=== PATIENT | female | born 1985 | race Caucasian/White ===

== ENCOUNTER → 2017-11-17 09:32 | Outpatient (CLI) | payer OTHER, MEDICAID, SELFPAY ==
--- NOTE | 2017-11-17 | DI.RAD.S_ITS ---
PROCEDURE: XR CHEST 2V INDICATIONS: COUGH TECHNIQUE: 2 views of the chest were acquired. COMPARISON: [facility], CHEST 2 VIEW, 03/25/2017, 10:55. [facility], CHEST 2 VIEW, 11/08/2016, 7:26. [facility], CHEST 2 VIEW, 10/26/2016, 19:00. FINDINGS: Surgical changes and devices: None. Lungs and pleura: No pleural effusions or pneumothorax. Lungs are clear. Mediastinum: Mediastinal contours are normal. Heart size is normal. Bones and chest wall: No suspicious bony abnormalities. Soft tissues appear unremarkable. IMPRESSION: Normal for age, source of current symptoms is not seen. No pneumonia found. Dictated by: Vidal Mcmanus M.D. on 11/17/2017 at 10:44 Approved by: Vidal Mcmanus M.D. on 11/17/2017 at 10:44
== END ==
PROVIDERS: PCP Family Medicine; Visit Provider Family Medicine
DX: R05 Cough (principal)
CPT/HCPCS: 71046

== ENCOUNTER 2017-12-12 00:35 | Emergency (ER) | payer OTHER, MEDICAID, SELFPAY ==
[2017-12-12 00:41] VITALS: BP 114/73; PULSE 85; RESP 18; TEMP 36.6; O2SAT 100; BMI 21.4
--- NOTE | 2017-12-12 01:55 | ED_ITS ---
HPI - Ear Problem General Chief complaint: Ear Stated complaint: right side ear pain Time Seen by Provider: 12/12/17 01:31 Source: patient Mode of arrival: ambulatory Limitations: no limitations History of Present Illness HPI Narrative: the patient developed right ear pain earlier this evening. She has recently returned home on a flight, she developed congestion and cough after returning. She denies fever or chills. She has no facial pain. She has no drainage from the right ear. She had a history of chronic ear problems as a child, not as an adult. She is not a nonsmoker. She denies having issues with allergies or asthma. She has not been swimming recently. Related Data Home Medications Medication Instructions Recorded Confirmed multivitamin [Multiple Vitamins] 1 tab PO QDAY #0 10/26/16 cyclobenzaprine 10 mg PO Q8H PRN 09/23/17 promethazine-codeine 5 ml PO Q4H PRN 09/23/17 Previous Rx's Medication Instructions Recorded hydrocodone-acetaminophen 1 - 2 tab PO Q4HP PRN #30 tab 08/09/17 Allergies Allergy/AdvReac Type Severity Reaction Status Date / Time Penicillins Allergy Intermediate RASH Verified 12/12/17 00:45 Review of Systems Constitutional Denies chills, Denies fever(s), Denies lethargy and Denies weakness Eyes Denies eye discharge and Denies irritation ENT Ears, Nose, Mouth, and Throat: Denies change in voice, Denies dental pain, Denies ear discharge, Reports otalgia, Reports nasal congestion, Denies neck pain and Denies sore throat Cardiovascular Denies chest pain, Denies irregular heart rhythm, Denies lightheadedness, Denies palpitations and Denies orthopnea Respiratory Reports cough Musculoskeletal Denies neck pain Neurologic Denies weakness Endocrine Denies palpitations PFSH Medical History Asthma, currently inactive (Acute) Chest pain (Acute) History of pneumonia (Acute) Hx of fracture of toe (Acute) Surgical History History of tonsillectomy (Acute) H/O hernia repair (Acute) H/O lymph node excision (Acute) History of placement of ear tubes (Acute) Social History household members: spouse and children Smoking Status: Never smoker alcohol intake: never Exam Initial Vital Signs Initial Vital Signs: Vital Signs Temperature 97.8 F 12/12/17 00:41 Pulse Rate 85 12/12/17 00:41 Respiratory Rate 18 12/12/17 00:41 Blood Pressure 114/73 12/12/17 00:41 Pulse Oximetry 100 12/12/17 00:41 Const General: cooperative and well developed Nutritional Appearance: well nourished Orientation: alert, awake, oriented x3 and not confused [facility] Head: normocephalic and atraumatic Ears: external ears normal, TM normal on the left, EAC's normal and TM abnormal ( the right TM is retracted, but there is no fluid or inflammation.) Nose: external nose normal and No nasal discharge Face and sinus: sinuses nontender and face symmetric Mouth: oral mucosae normal and moist mucous membranes Teeth and gingiva: dentition normal and other ( No TMJ tenderness.) Throat: posterior oropharynx normal Neck Lymphatic: No lymphadenopathy Course Orders Ordered: Discontinued Medications Ibuprofen (Advil) 800 mg PO NOW ONE Stop: 12/12/17 01:32 Vital Signs - 8 hr 12/12/17 00:41 Temperature 97.8 F Pulse Rate 85 Respiratory Rate 18 Blood Pressure 114/73 Pulse Oximetry 100 Discharge Plan Departure Patient Disposition: Home, Self-Care Clinical Impression: Acute dysfunction of right eustachian tube Instructions: DI for Eustachian Tube Dysfunction-Adult Activity Restrictions/Additional Instructions: Advil 3 tablets every 6 hr as needed for pain. Mucinex as needed, follow package instructions. Steam your sinuses as described during our conversation. Prescriptions: No Action multivitamin [Multiple Vitamins] 1 EACH tablet 1 tab PO QDAY Qty: 0 RF: 0 hydrocodone-acetaminophen 5 MG/325 MG tablet 1 - 2 tab PO Q4HP PRNQty: 30 RF: 0 cyclobenzaprine 10 mg Tablet 10 mg PO Q8H PRN (Reason: Spasms) RF: 0 promethazine-codeine 6.25-10 mg/5 mL Syrup 5 ml PO Q4H PRN (Reason: Cough) RF: 0
[2017-12-12] MEDS: IBUPROFEN 400 MG TABLET 800 MG PO (01:57)
[2017-12-12 02:00] VITALS: BP 111/70; PULSE 84; RESP 18; TEMP 36.8; O2SAT 100
== END 2017-12-12 02:01 | disposition home or self-care (01) ==
PROVIDERS: Emergency Provider Emergency Medicine; Family Provider Family Medicine; PCP Family Medicine
DX: H69.81 Other specified disorders of Eustachian tube, right ear (principal)
CPT/HCPCS: 99282

== ENCOUNTER → 2020-12-07 09:39 | Outpatient (CLI) | payer OTHER, SELFPAY ==
[2020-12-07 11:18] LABS: Add Manual Diff / Slide Review NO; Basophils Absolute Auto 0 /uL (0-100); Basophils Percent Auto 0.6 % (0-2); Eosinophils Absolute Auto 400 /uL (0-450); Eosinophils Percent Auto 4.7 % (2-4); Hematocrit 41.9 % (36-46); Hemoglobin 13.7 g/dL (12.0-16.0); Lymphocytes Absolute Auto 2500 /uL (1100-4500); Mean Corpuscular HGB Conc 32.7 % (30-36); Mean Corpuscular Hemoglobin 31.1 PG (26-34); Mean Corpuscular Volume 94.8 fL (80-100); Monocytes Absolute Auto 600 /uL (0-900); Monocytes Percent Auto 7.2 % (3-14); Neutrophils Absolute Auto 5000 /uL (1500-7000); Neutrophils Percent Auto 58.5 % (50-75); Platelet Count 275 X10^3/uL (150-400); Red Blood Cell Count 4.42 X10^6/uL (4.0-5.2); Red Cell Distribution Width 12.8 % (11.6-14.8); White Blood Cell Count 8.6 X10^3/uL (4.5-11.0)
[2020-12-07 11:53] LABS: Alanine Aminotransferase 14 IU/L (<35); Albumin 4.1 g/dL (3.5-5.0); Albumin Globulin Ratio 1.5 (1.0-2.8); Alkaline Phosphatase 51 U/L (38-126); Aspartate Aminotransferase 23 IU/L (14-36); BUN Creatinine Ratio 16.9 (6-22); Bilirubin Total 0.4 mg/dL (0.2-1.3); Blood Urea Nitrogen 11 mg/dL (7-17); Calcium 9.5 mg/dL (8.4-10.2); Carbon Dioxide 24 mmol/L (22-32); Chloride 106 mmol/L (98-107); Cholesterol 146 mg/dL (140-199); Estimated Glomerular Filt Rate > 60.0 mL/min (>60); Globulin 2.7 g/dL (1.7-4.1); Glucose 86 mg/dL (70-100); HDL Cholesterol 81 mg/dL (40-60); HEMOLYSIS < 15 (0-50); LDL Cholesterol Calculated 52 mg/dL (<100); Potassium 4.4 mmol/L (3.4-5.1); Sodium 138 mmol/L (137-145); Total Protein 6.8 g/dL (6.3-8.2); Triglycerides 63 mg/dL (35-150)
[2020-12-07 12:18] LABS: Thyroid Stimulating Hormone 0.728 uIU/mL (0.47-4.68)
== END ==
PROVIDERS: Family Provider Family Medicine; PCP Family Medicine; Referring Provider Family Medicine; Visit Provider Family Medicine
DX: Z13.0 Encounter for screening for diseases of the blood and blood-forming organs and certain disorders involving the immune mechanism (principal); Z13.228 Encounter for screening for other metabolic disorders; Z13.220 Encounter for screening for lipoid disorders; Z13.29 Encounter for screening for other suspected endocrine disorder
CPT/HCPCS: 36415; 80053; 80061; 84443; 85025

== ENCOUNTER → 2022-06-16 06:44 | Outpatient (CLI) | payer OTHER, SELFPAY ==
--- NOTE | 2022-06-16 | DI.US.S_ITS ---
PROCEDURE: US PELVIC COMPLETE INDICATIONS: PAIN TECHNIQUE: Real-time scanning was performed of the pelvic organs, with image documentation. Additional endovaginal scanning was necessary due to incomplete visualization of the adnexal and endometrial structures by transabdominal scanning. COMPARISON: None. FINDINGS: Uterus: Uterus is anteverted and normal in size at 9.7 x 4.8 x 6.6 cm. The myometrium is homogeneous. The endometrium measures 12 mm combined thickness. No focal uterine mass Ovaries: The right ovary measures 4.0 x 2.8 x 2.5 cm, with a calculated ovarian volume of 14.4 cc. The left ovary measures 3.1 x 2.8 x 1.6 cm, with a calculated ovarian volume of 7.3 cc. The ovaries have a normal sonographic appearance. Less than 12 follicles can be seen in each ovary. No adnexal masses are seen. 21 mm right ovarian simple cyst. Other: No pathologic free abdominal or pelvic fluid. IMPRESSION: Negative examination. We strive to produce accurate, complete, and clear reports of imaging services. To assist us in improving patient care, this report was composed using standard report templates and voice recognition software. Therefore, it may contain abnormal punctuation, insertions and/or omissions. Occasional wrong-word or sound-alike substitutions may occur. Though we review the report and make efforts to correct it, we do recommend that the report be read carefully in proper context to recognize any text inaccuracies. Dictated by: Jose Enrique Gusman M.D. on 06/16/2022 at 10:23 Transcribed by: SARAHI on 06/16/2022 at 10:24 Approved by: Jose Enrique Gusman M.D. on 06/16/2022 at 15:31
== END ==
PROVIDERS: Family Provider Family Medicine; PCP Family Medicine; Referring Provider Family Medicine; Visit Provider Family Medicine
DX: N83.291 Other ovarian cyst, right side (principal); R10.2 Pelvic and perineal pain
CPT/HCPCS: 76830; 76856; 93975

== ENCOUNTER → 2022-07-01 13:07 | Outpatient (CLI) | payer OTHER, SELFPAY ==
--- NOTE | 2022-07-01 | DI.MG.S_ITS ---
BILATERAL DIGITAL DIAGNOSTIC MAMMOGRAM 3D/2D: 07/01/2022 CLINICAL: Baseline Bilateral Mastodynia. No prior exams were available for comparison. Both breasts are extremely dense, which lowers the sensitivity of mammography (category d />75% glandular tissue). No significant masses, calcifications, or other findings are seen in either breast. IMPRESSION: NEGATIVE There is no mammographic evidence of malignancy. There is no abnormality seen in the bilateral breast to correspond with the area of clinical concern described as diffuse pain, however, recommend clinical follow up for persistent or worsening symptoms, or development of any clinically suspicious findings. Recommend initiating routine screening mammograms at age 40. Findings and recommendations were conveyed to the patient during today's evaluation. This exam was interpreted at Station ID: [id number]. NOTE: For mammograms, a report in lay terms will be sent to the patient. Approximately 15% of breast malignancies will not be visualized mammographically. In the management of a palpable breast mass, a negative mammogram must not discourage biopsy of a clinically suspicious lesion. Electronically Signed By: Abdirashid Tineo M.D. at/:07/01/2022 14:21:41 letter sent: Clinical Evaluation ACR BI-RADS Category 1: Negative [id number]
== END ==
PROVIDERS: Family Provider Family Medicine; PCP Family Medicine; Referring Provider Family Medicine; Visit Provider Family Medicine
DX: N64.4 Mastodynia (principal)
CPT/HCPCS: 77066; G0279

== ENCOUNTER → 2022-09-21 15:10 | Outpatient (CLI) | payer OTHER, SELFPAY ==
--- NOTE | 2022-09-21 | DI.US.S_ITS ---
PROCEDURE: US OB <= 14 WEEKS FETUS INDICATIONS: SIZE AND DATES OUTSIDE/PRIOR DATING DATA: Last menstrual period (LMP): 07/05/2022 LMP-based estimated date of delivery (PAT): 04/11/2023. First dating scan (date and location): 09/21/2022. Estimated date of delivery (PAT) from first dating scan: 04/04/2023. TECHNIQUE: Real-time scanning was performed of the fetus and maternal pelvic organs, with image documentation. Endovaginal scanning was also performed to better visualize the fetus and maternal ovaries. COMPARISON: None. FINDINGS: Embryo: [place]-rump length measures 5.5 cm corresponding to 12 weeks 1 day. Heart rate: 165 Maternal organs: Normal left over the right ovary is not clearly seen. IMPRESSION: 11 week 1 day single living IUP corresponding to ultrasound PAT of 04/04/2023. We strive to produce accurate, complete, and clear reports of imaging services. To assist us in improving patient care, this report was composed using standard report templates and voice recognition software. Therefore, it may contain abnormal punctuation, insertions and/or omissions. Occasional wrong-word or sound-alike substitutions may occur. Though we review the report and make efforts to correct it, we do recommend that the report be read carefully in proper context to recognize any text inaccuracies. Dictated by: Alexander GIRALDO Interpreted: Herminio Enciso MD on 09/21/2022 at 16:26 Transcribed by: DANIELA on 09/21/2022 at 16:27 Approved by: Herminio Enciso M.D. on 09/22/2022 at 22:37
== END ==
PROVIDERS: Family Provider Family Medicine; PCP Family Medicine; Referring Provider Family Medicine; Visit Provider Family Medicine
DX: Z3A.11 11 weeks gestation of pregnancy; Z36.87 Encounter for antenatal screening for uncertain dates
CPT/HCPCS: 76801; 76817